=== PATIENT | male | born 1950 | race Caucasian/White ===

== ENCOUNTER 2018-04-11 19:30 | Outpatient (CLI) | payer MEDICARE, BC | END 2018-04-11 19:31 | disposition home or self-care (01) | LOC: SLEEPLAB 19:30 | PROVIDERS: ATTEND Family Medicine | DX: G47.33 Obstructive sleep apnea (adult) (pediatric) (principal); R53.83 Other fatigue; E66.9 Obesity, unspecified; F32.9 Major depressive disorder, single episode, unspecified; I10 Essential (primary) hypertension; I25.10 Atherosclerotic heart disease of native coronary artery without angina pectoris; E11.9 Type 2 diabetes mellitus without complications; G47.61 Periodic limb movement disorder; I49.3 Ventricular premature depolarization; Z68.38 Body mass index [BMI] 38.0-38.9, adult | CPT/HCPCS: 95810 ==

== ENCOUNTER 2018-04-18 19:30 | Outpatient (CLI) | payer MEDICARE, BC | END 2018-04-18 19:31 | disposition home or self-care (01) | LOC: SLEEPLAB 19:30 | PROVIDERS: ATTEND Family Medicine | DX: G47.33 Obstructive sleep apnea (adult) (pediatric) (principal); R53.83 Other fatigue; R40.0 Somnolence; R09.89 Other specified symptoms and signs involving the circulatory and respiratory systems; F32.9 Major depressive disorder, single episode, unspecified; E66.9 Obesity, unspecified; I10 Essential (primary) hypertension; I25.10 Atherosclerotic heart disease of native coronary artery without angina pectoris; E11.9 Type 2 diabetes mellitus without complications; Z68.38 Body mass index [BMI] 38.0-38.9, adult | CPT/HCPCS: 95811 ==

== ENCOUNTER 2023-02-25 10:19 | Observation (INO) | payer MEDICARE, BC ==
[2023-02-25] MEDS ORDERED: Nitroglycerin 2% Ointment 1 INCH/1 GM Packet ONE (10:40)
[2023-02-25 10:48] LABS: #Basophils 0.1 thou/uL (0.0-0.2); #Eosinphils 0.2 thou/uL (0.0-0.7); #Monocytes 0.7 thou/uL (0.11-0.59); #Neutrophils 3.6 thou/uL (1.40-6.50); %Basophils 0.7 % (0.0-1.0); %Eosinophils 3.4 % (0.0-10.0); %Lymphocytes 36.1 % (21.0-51.0); %Monocytes 9.8 % (0.0-10.0); %Neutrophils 49.7 % (42.0-75.0); Hemoglobin 16.4 g/dL (14.0-18.0); Mean Corpuscular HGB CONC 32.2 g/dL (32.0-36.0); Mean Corpuscular Hemoglobin 25.6 pg (27.0-31.0); Mean Corpuscular Volume 79.7 fl (78.0-98.0); Mean Platelet Volume 9.9 fL (7.4-10.4); Platelet Count 185 10x3/uL (130-400); RBC Distribution Width 14.6 % (11.5-14.5); White Blood Cell (WBC) Count 7.1 10x3/uL (4.8-10.8)
[2023-02-25 11:16] LABS: ALT (SGPT) 17 U/L (8-55); AST (SGOT) 21 U/L (5-34); Alkaline Phosphatase 59 U/L (40-110); Anion Gap 16 mmol/L (10-20); BUN (Urea Nitrogen) 15 mg/dL (8.4-25.7); Bilirubin, Total 0.4 mg/dL (0.2-1.2); Calc. Creatinine Clearance 0 mL/min (70-130); Calcium 9.1 mg/dL (7.8-10.44); Carbon Dioxide 21 mmol/L (23-31); Chloride 100 mmol/L (98-107); Estimated GFR 65; Globulin 3.9 g/dL (2.4-3.5); Glucose 372 mg/dL (83-110); Lipase 26 U/L (8-78); Potassium 4.4 mmol/L (3.5-5.1); Protein, Total 7.9 g/dL (5.8-8.1); Sodium 133 mmol/L (136-145)
[2023-02-25 11:18] LABS: Troponin I 0.053 ng/mL (< 0.028)
[2023-02-25 11:27] LABS: Bacteria/HPF None Seen HPF (None Seen); Bilirubin Negative (Negative); Blood, Urine Negative (Negative); CAUTI Indications for Culture Alt mental st,lethar; Clarity Clear (Clear); Glucose, Urine (Dipstick) Greater than 1000 mg/dL (Negative); Ketone, Urine Negative (Negative); Leukocyte Negative Leu/uL (Negative); Nitrite Negative (Negative); Protein, Urine (Dipstick) Negative (Neg-Trace); RBC/HPF 0-3 HPF (0-3); Specific Gravity, Urine 1.008 (1.002-1.036); Squamous Epithelial None Seen HPF (0-3); Urobilinogen Normal mg/dL (Less than 2); WBC/HPF None Seen HPF (0-3)
[2023-02-25 11:31] LABS: Urine Culture Reflex No No
[2023-02-25] MEDS ORDERED: Acetaminophen 500 MG TAB ONE (11:40)
[2023-02-25] MEDS ORDERED: Dextrose 50% Abboject 50 ML SYRINGE SLOW IVP PRN (13:27)
[2023-02-25] MEDS ORDERED: Senokot S 8.6-50 MG TAB PO PRN (13:27)
[2023-02-25] MEDS ORDERED: Ondansetron PF 4 MG/2 ML Vial IVP PRN ×2 (13:27→13:45)
[2023-02-25] MEDS ORDERED: Acetaminophen 650 MG Suppository PR PRN (13:27)
[2023-02-25] MEDS ORDERED: Dextrose 5% in Water 1,000 ML IV PRN (13:27)
[2023-02-25] MEDS ORDERED: Acetaminophen 325 MG TAB PO PRN ×2 (13:27→13:45)
[2023-02-25] MEDS ORDERED: Glucagon 1 MG/ML KIT IM PRN (13:27)
[2023-02-25] MEDS ORDERED: Ondansetron ODT 4 MG TAB PO PRN (13:27)
[2023-02-25] MEDS ORDERED: HumaLOG 300 UNITS/3 ML VIAL SC PRN (13:27)
[2023-02-25] MEDS ORDERED: Nitroglycerin 0.4 MG TAB (25 Tab Bottle) SL PRN (13:27)
[2023-02-25] MEDS ORDERED: Ondansetron ODT 4 MG TAB SL PRN (13:45)
[2023-02-25 14:03] LABS: Magnesium 1.7 mg/dL (1.6-2.6)
[2023-02-25] MEDS: tiZANidine HCl 4 MG TAB PO PRN ×2 (14:24→21:03)
[2023-02-25] MEDS: Nitroglycerin 2% Ointment 1 INCH/1 GM Packet TOP SCH ×2 (14:24→23:16)
[2023-02-25 14:31] VITALS: BMI 35.1
[2023-02-25 14:34] LABS: Troponin I 0.045 ng/mL (< 0.028)
[2023-02-25 18:17] LABS: Troponin I 0.037 ng/mL (< 0.028)
[2023-02-25] MEDS: HumaLOG 300 UNITS/3 ML VIAL SC PRN (18:24)
[2023-02-25] MEDS: Melatonin 3 MG TAB PO PRN (21:03)
[2023-02-25] MEDS: Amiodarone 200 MG TAB PO SCH (21:03)
[2023-02-25] MEDS: Famotidine 20 MG TAB PO SCH (21:03)
[2023-02-25] MEDS: HumuLIN 70/30 (300 UNITS/3 ML VIAL) SC SCH (21:03)
[2023-02-26] MEDS: Nitroglycerin 2% Ointment 1 INCH/1 GM Packet TOP SCH ×3 (05:45→21:33)
[2023-02-26 07:31] LABS: Magnesium 1.9 mg/dL (1.6-2.6)
[2023-02-26] MEDS: Famotidine 20 MG TAB PO SCH ×2 (08:09→21:27)
[2023-02-26] MEDS: tiZANidine HCl 4 MG TAB PO PRN ×2 (08:09→21:27)
[2023-02-26] MEDS: Amiodarone 200 MG TAB PO SCH ×2 (08:10→21:27)
[2023-02-26] MEDS: HumuLIN 70/30 (300 UNITS/3 ML VIAL) SC SCH ×2 (08:29→21:27)
[2023-02-26] MEDS: Isosorbide Mononitrate 30 MG ER.TAB PO SCH (08:30)
[2023-02-26] MEDS: HumaLOG 300 UNITS/3 ML VIAL SC PRN (13:38)
[2023-02-26] MEDS ORDERED: Amlodipine 5 mg/Benazepril 10 mg CAP PO SCH (18:30)
[2023-02-26] MEDS: Apixaban 5 MG TAB PO SCH (21:27)
[2023-02-27 06:00] LABS: Anion Gap 15 mmol/L (10-20); BUN (Urea Nitrogen) 15 mg/dL (8.4-25.7); Calc. Creatinine Clearance 91 mL/min (70-130); Calcium 9.3 mg/dL (7.8-10.44); Carbon Dioxide 24 mmol/L (23-31); Cardiac Risk 5.5 (Less than 4.5); Chloride 102 mmol/L (98-107); Cholesterol 225 mg/dl (< 200 Desired); Estimated GFR 65; Glucose 196 mg/dL (83-110); HDL Cholesterol 41 mg/dL (>60 Neg Risk); LDL Cholesterol, Calculated 135 mg/dL; Sodium 137 mmol/L (136-145); Triglycerides 247 mg/dL (Less than 150)
[2023-02-27] MEDS: Nitroglycerin 2% Ointment 1 INCH/1 GM Packet TOP SCH ×3 (06:01→21:38)
[2023-02-27] MEDS: HumaLOG 300 UNITS/3 ML VIAL SC PRN ×3 (09:18→17:50)
[2023-02-27] MEDS: HumuLIN 70/30 (300 UNITS/3 ML VIAL) SC SCH ×2 (09:19→21:38)
[2023-02-27] MEDS: Amlodipine 5 mg/Benazepril 10 mg CAP PO SCH (09:23)
[2023-02-27] MEDS: Isosorbide Mononitrate 30 MG ER.TAB PO SCH (09:23)
[2023-02-27] MEDS: Clopidogrel Bisulfate 75 MG TAB PO SCH (09:23)
[2023-02-27] MEDS: Apixaban 5 MG TAB PO SCH ×2 (09:24→21:37)
[2023-02-27] MEDS: Famotidine 20 MG TAB PO SCH ×2 (09:24→21:37)
[2023-02-27] MEDS: tiZANidine HCl 4 MG TAB PO PRN ×2 (09:24→21:37)
[2023-02-27] MEDS: Amiodarone 200 MG TAB PO SCH ×2 (09:24→21:37)
[2023-02-27] MEDS: Melatonin 3 MG TAB PO PRN (21:37)
[2023-02-28] MEDS: Nitroglycerin 2% Ointment 1 INCH/1 GM Packet TOP SCH ×3 (04:45→21:25)
[2023-02-28 08:18] LABS: Anion Gap 12 mmol/L (10-20); BUN (Urea Nitrogen) 19 mg/dL (8.4-25.7); Calc. Creatinine Clearance 98 mL/min (70-130); Calcium 9.1 mg/dL (7.8-10.44); Carbon Dioxide 24 mmol/L (23-31); Chloride 103 mmol/L (98-107); Estimated GFR 70; Glucose 165 mg/dL (83-110); Potassium 4.3 mmol/L (3.5-5.1); Sodium 135 mmol/L (136-145)
[2023-02-28] MEDS: Amlodipine 5 mg/Benazepril 10 mg CAP PO SCH (10:05)
[2023-02-28] MEDS: Amiodarone 200 MG TAB PO SCH ×2 (10:06→21:25)
[2023-02-28] MEDS: Clopidogrel Bisulfate 75 MG TAB PO SCH (10:06)
[2023-02-28] MEDS: Apixaban 5 MG TAB PO SCH ×2 (10:06→21:25)
[2023-02-28] MEDS: Isosorbide Mononitrate 30 MG ER.TAB PO SCH (10:06)
[2023-02-28] MEDS: HumuLIN 70/30 (300 UNITS/3 ML VIAL) SC SCH ×2 (10:08→21:24)
[2023-02-28] MEDS: Famotidine 20 MG TAB PO SCH ×2 (10:11→21:25)
[2023-02-28] MEDS ORDERED: Regadenoson 0.4 MG/5 ML SYRINGE ONE (12:18)
[2023-02-28] MEDS: HumaLOG 300 UNITS/3 ML VIAL SC PRN (19:31)
[2023-02-28] MEDS: Melatonin 3 MG TAB PO PRN (21:25)
[2023-02-28] MEDS: tiZANidine HCl 4 MG TAB PO PRN (21:25)
[2023-02-28 23:59] LABS: Campy jejuni + coli by PCR Negative (Negative); STEC Shiga Toxin 1+2 Negative (Negative); Salmonella spp. by PCR Negative (Negative); Shigella spp + EIEC by PCR Negative (Negative)
[2023-03-01] MEDS: Nitroglycerin 2% Ointment 1 INCH/1 GM Packet TOP SCH ×2 (04:45→13:34)
[2023-03-01] MEDS: Famotidine 20 MG TAB PO SCH (09:34)
[2023-03-01] MEDS: Isosorbide Mononitrate 30 MG ER.TAB PO SCH (09:34)
[2023-03-01] MEDS: Apixaban 5 MG TAB PO SCH (09:34)
[2023-03-01] MEDS: Amiodarone 200 MG TAB PO SCH (09:34)
[2023-03-01] MEDS: Clopidogrel Bisulfate 75 MG TAB PO SCH (09:34)
[2023-03-01] MEDS: HumuLIN 70/30 (300 UNITS/3 ML VIAL) SC SCH (09:35)
[2023-03-01] MEDS: Amlodipine 5 mg/Benazepril 10 mg CAP PO SCH (09:37)
[2023-03-01] MEDS: HumaLOG 300 UNITS/3 ML VIAL SC PRN (12:10)
[2023-03-01 15:35] VITALS: BP 129/77; TEMP 97.4
[2023-03-03 14:37] LABS: Adenovirus F 40-41 Not Detected (Not Detected); Astrovirus Not Detected (Not Detected); C. difficile toxin A+B Not Detected (Not Detected); Campylobacter by PCR Not Detected (Not Detected); Cryptosporidium Not Detected (Not Detected); Cyclospora cayetanensis Not Detected (Not Detected); Entamoeba histolytica Not Detected (Not Detected); Enteroaggregative E. coli Not Detected (Not Detected); Enteropathogenic E. coli Not Detected (Not Detected); Enterotoxigenic E. coli Not Detected (Not Detected); Giardia lamblia Not Detected (Not Detected); Norovirus GI-GII Not Detected (Not Detected); Plesiomonas shigelloides Not Detected (Not Detected); Rotavirus A Not Detected (Not Detected); Salmonella Not Detected (Not Detected); Sapovirus Not Detected (Not Detected); Shiga-toxin-producing E coli Not Detected (Not Detected); Shigella/Enteroinvasive E coli Not Detected (Not Detected); Vibrio Not Detected (Not Detected); Vibrio cholerae Not Detected (Not Detected); Yersinia enterocolitica Not Detected (Not Detected)
== END 2023-03-01 17:34 | disposition home or self-care (01) ==
LOC: ERS 10:19 → 2SW 11:43
PROVIDERS: ADMIT Hospitalist; ATTEND Hospitalist
PROC: B246ZZ4 Ultrasonography of Right and Left Heart, Transesophageal (ICD-10-PCS; principal; 2023-03-01)
DX: I25.118 Atherosclerotic heart disease of native coronary artery with other forms of angina pectoris (principal); I21.4 Non-ST elevation (NSTEMI) myocardial infarction; I48.20 Chronic atrial fibrillation, unspecified; I25.5 Ischemic cardiomyopathy; I16.0 Hypertensive urgency; I10 Essential (primary) hypertension; E78.00 Pure hypercholesterolemia, unspecified; E11.9 Type 2 diabetes mellitus without complications; J42 Unspecified chronic bronchitis; F41.9 Anxiety disorder, unspecified; F32.A Depression, unspecified; G89.29 Other chronic pain; M54.50 Low back pain, unspecified; G47.33 Obstructive sleep apnea (adult) (pediatric); Z88.8 Allergy status to other drugs, medicaments and biological substances; Z90.49 Acquired absence of other specified parts of digestive tract; Z79.4 Long term (current) use of insulin; Z79.84 Long term (current) use of oral hypoglycemic drugs; Z79.82 Long term (current) use of aspirin; Z79.01 Long term (current) use of anticoagulants; Z79.899 Other long term (current) drug therapy
CPT/HCPCS: 71045; 78452; 80048 ×2; 80053; 80061; 81001; 82962 ×5; 83630; 83690; 83735 ×2; 83880; 84443; 84484 ×2; 85025; 87324; 87449; 87505; 87507; 93005 ×3; 93017; 93306; 99285; A9502; G0378 ×6; J2785; 36415; 36416; 93010; J1815

== ENCOUNTER 2023-03-26 08:50 | Day surgery (SDC) | payer MEDICARE, BC ==
[2023-03-23 13:03] VITALS: BMI 33.5
[2023-03-26] MEDS ORDERED: PROPOFOL 200 MG/20 ML VIAL ONE (12:00)
== END 2023-03-26 14:06 | disposition home or self-care (01) ==
LOC: MRI 08:50
PROVIDERS: ATTEND Neurological Surgery
DX: M54.16 Radiculopathy, lumbar region (principal); M47.12 Other spondylosis with myelopathy, cervical region; I10 Essential (primary) hypertension; F32.A Depression, unspecified; E11.9 Type 2 diabetes mellitus without complications; I25.10 Atherosclerotic heart disease of native coronary artery without angina pectoris; I25.2 Old myocardial infarction; F41.9 Anxiety disorder, unspecified; G47.33 Obstructive sleep apnea (adult) (pediatric); Z88.8 Allergy status to other drugs, medicaments and biological substances; Z98.890 Other specified postprocedural states; Z79.01 Long term (current) use of anticoagulants; Z79.4 Long term (current) use of insulin; Z79.899 Other long term (current) drug therapy
CPT/HCPCS: 36416; 72040; 72141; 72148; J2704

== ENCOUNTER 2024-01-17 05:10 | Inpatient (IN) | payer MEDICARE, BC ==
[2024-01-17] MEDS ORDERED: NOREPINEPHRINE 8 MG/250 ML-D5W 250 ML ONE (05:23)
[2024-01-17 05:28] LABS: Actual Bicarbonate (HCO3v) 35.9 mEq/L (22-28); Analyzer IN Cardio ER; Base Excess 8.2 mEq/L (-2.0 to +3.0); Calcium, Ionized (venous) 1.17 mmol/L (1.16-1.32); Chloride (VBG) 96 mmol/L (98-106); Hematocrit-VBG 29 % (42.0-52.0); Hemoglobin (Hb) 9.9 g/dL (12.6-17.4); Potassium (VBG) 4.39 mmol/L (3.70-5.30); Sodium 142 mmol/L (133-146); pH (venous) 7.326 (7.32-7.43)
[2024-01-17] MEDS ORDERED: LevoFLOXacin 750 mg/D5W 150 ml Premix Bag ONE (05:30)
[2024-01-17] MEDS ORDERED: Cefepime 2 GM VIAL ONE (05:31)
[2024-01-17] MEDS ORDERED: Sodium Chloride 0.9% 100 ML ONE (05:31)
[2024-01-17 05:44] LABS: Bacteria/HPF None Seen HPF (None Seen); Bilirubin Negative (Negative); Blood, Urine Negative (Negative); CAUTI Indications for Culture Alt mental st,lethar; Clarity Clear (Clear); Glucose, Urine (Dipstick) Greater than 1000 mg/dL (Negative); Ketone, Urine Negative (Negative); Leukocyte Negative Leu/uL (Negative); Nitrite Negative (Negative); Protein, Urine (Dipstick) 20 mg/dL (Neg-Trace); RBC/HPF 0-3 HPF (0-3); Specific Gravity, Urine 1.021 (1.002-1.036); Squamous Epithelial None Seen HPF (0-3); Urobilinogen Normal mg/dL (Less than 2); WBC/HPF 0-3 HPF (0-3)
[2024-01-17 05:45] LABS: Urine Culture Reflex No No
[2024-01-17 05:50] LABS: #Basophils 0.03 10x3/uL (0.0-0.2); %Basophils 0.2 % (0.0-1.0); %Eosinophils 0.3 % (0.0-10.0); %Lymphocytes 19.9 % (21.0-51.0); %Monocytes 5.8 % (0.0-10.0); %Neutrophils 73.4 % (42.0-75.0); Hematocrit 34.5 % (42.0-52.0); Hemoglobin 9.6 g/dL (14.0-18.0); Mean Corpuscular HGB CONC 27.8 g/dL (32.0-36.0); Mean Corpuscular Hemoglobin 22.4 pg (27.0-31.0); Mean Corpuscular Volume 80.4 fL (78.0-98.0); Mean Platelet Volume 9.8 fL (7.4-10.4); Platelet Count 381 10x3/uL (130-400); RBC Distribution Width 21.4 % (11.5-14.5); Red Blood Cell (RBC) Count 4.29 mill/uL (4.70-6.10)
[2024-01-17 06:08] LABS: ALT (SGPT) 17 U/L (8-55); AST (SGOT) 15 U/L (5-34); Albumin 2.3 g/dL (3.4-4.8); Alkaline Phosphatase 88 U/L (40-110); Anion Gap 14 mmol/L (10-20); BUN (Urea Nitrogen) 53 mg/dL (8.4-25.7); Bilirubin, Total 0.3 mg/dL (0.2-1.2); CK (CPK) 32 U/L (30-200); Calc. Creatinine Clearance 0 mL/min (70-130); Calcium 9.3 mg/dL (7.8-10.44); Carbon Dioxide 39 mmol/L (23-31); Chloride 95 mmol/L (98-107); Estimated GFR 91; Globulin 5.6 g/dL (2.4-3.5); Glucose 289 mg/dL (83-110); Potassium 4.4 mmol/L (3.5-5.1); Protein, Total 7.9 g/dL (5.8-8.1); Sodium 144 mmol/L (136-145)
[2024-01-17 06:21] LABS: Anisocytosis SLIGHT = 6-15 cells HPF (0-5); Microcytosis SLIGHT = 6-15 cells HPF (0-5); Platelet Adequacy Comment Platelets Normal; Polychromasia SLIGHT = 2-3 cells HPF (0-2); Stomatocytes SLIGHT = 2-5 cells HPF (0-1)
[2024-01-17 06:50] LABS: Troponin I Less than 0.010 ng/mL (< 0.028)
[2024-01-17] MEDS ORDERED: Dextrose 50% Abboject 50 ML SYRINGE SLOW IVP PRN (08:00)
[2024-01-17] MEDS ORDERED: Glucagon 1 MG/ML KIT IM PRN (08:00)
[2024-01-17] MEDS ORDERED: Dextrose 5% in Water 1,000 ML IV PRN (08:00)
[2024-01-17] MEDS ORDERED: Insulin Lispro 100 UNIT/ML 10 ML VIAL SC PRN (08:00)
[2024-01-17] MEDS ORDERED: Cefepime 1 MG in Syringe 0 ML IVPB SCH (09:00)
[2024-01-17] MEDS: Vancomycin (BATCH) 2 GM in Premix 1 BAG IVPB SCH (09:08)
[2024-01-17 09:27] LABS: Lactic Acid 2.16 mmol/L (0.5-2.2)
[2024-01-17] MEDS: Scopolamine 1 mg/72 hour Patch TD SCH (10:24)
[2024-01-17] MEDS: Aspirin Chewable 81 MG TAB PER TUBE SCH (10:24)
[2024-01-17] MEDS: Apixaban 2.5 MG TAB PO SCH (10:24)
[2024-01-17] MEDS: Lansoprazole 30 MG/10 ML UDCUP PER TUBE SCH (10:25)
[2024-01-17] MEDS: Insulin Glargine 30 UNITS/0.3 ML VIAL SC SCH (10:25)
[2024-01-17] MEDS: Sodium Chloride 0.9% 1,000 ML IV SCH (10:28)
[2024-01-17 10:33] LABS: Actual Bicarbonate (HCO3a) 30.7 mEq/L (22-28); Base Excess (BEa) 9.1 mEq/L (-2.0 to +3.0); CO2 Tension 31.3 mmHg (35.0-45.0); Carboxyhemoglobin (COHb) 1.1 gm% (0.0-3.0); Hematocrit-ABG 29 % (42.0-52.0); Hemoglobin (Hb) 9.8 g/dL (14.0-18.0); O2 Tension (PaO2), arterial 68.2 mmHg (> 70.0)
[2024-01-17 10:59] LABS: ALV-art Gradient 177.875 mmHg (0-20); Puncture Site Right Radial artery
[2024-01-17] MEDS: FLU (Fluad Triv) TS24-25 (65UP)/MF59C/PF 45 MCG/0.5 ML Syringe IM ONE (12:40)
[2024-01-17] MEDS: Cefepime 2 GM in Sodium Chloride 0.9% 100 ML IVPB SCH (14:25)
[2024-01-17] MEDS: Ipratropium/Albuterol 3 ML NEB NEB PRN (19:22)
[2024-01-17] MEDS: Budesonide 0.5 MG/2 ML NEB INH SCH (19:22)
[2024-01-17] MEDS: QUEtiapine 25 MG TAB PO SCH (21:18)
[2024-01-17] MEDS: Atorvastatin Calcium 40 MG TAB PER TUBE SCH (21:18)
[2024-01-17] MEDS: Vancomycin (BATCH) 1.25 GM in Premix 1 BAG IVPB SCH (21:43)
[2024-01-18 04:59] LABS: #Basophils 0.04 10x3/uL (0.0-0.2); #Eosinophils Less than 0.03 10x3/uL (0.0-0.7); %Basophils 0.3 % (0.0-1.0); %Eosinophils 0.1 % (0.0-10.0); %Monocytes 6.4 % (0.0-10.0); %Neutrophils 58.9 % (42.0-75.0); Hematocrit 26.2 % (42.0-52.0); Hemoglobin 7.3 g/dL (14.0-18.0); Mean Corpuscular HGB CONC 27.9 g/dL (32.0-36.0); Mean Corpuscular Hemoglobin 22.2 pg (27.0-31.0); Mean Corpuscular Volume 79.6 fL (78.0-98.0); Mean Platelet Volume 9.7 fL (7.4-10.4); Platelet Count 313 10x3/uL (130-400); RBC Distribution Width 21.2 % (11.5-14.5); Red Blood Cell (RBC) Count 3.29 mill/uL (4.70-6.10)
[2024-01-18 05:04] LABS: Vancomycin, Random 11.2 ug/mL (See Comment)
[2024-01-18 05:08] LABS: ALT (SGPT) 14 U/L (8-55); AST (SGOT) 27 U/L (5-34); Albumin 1.7 g/dL (3.4-4.8); Alkaline Phosphatase 60 U/L (40-110); Anion Gap 12 mmol/L (10-20); BUN (Urea Nitrogen) 38 mg/dL (8.4-25.7); Bilirubin, Total 0.3 mg/dL (0.2-1.2); Calc. Creatinine Clearance 128 mL/min (70-130); Calcium 7.8 mg/dL (7.8-10.44); Carbon Dioxide 28 mmol/L (23-31); Chloride 105 mmol/L (98-107); Estimated GFR 99; Globulin 4.2 g/dL (2.4-3.5); Glucose 108 mg/dL (83-110); Magnesium 2.6 mg/dL (1.6-2.6); Potassium 3.4 mmol/L (3.5-5.1); Protein, Total 5.9 g/dL (5.8-8.1); Sodium 142 mmol/L (136-145)
[2024-01-18] MEDS: Ondansetron PF 4 MG/2 ML Vial IVP PRN (06:00)
[2024-01-18] MEDS: Vancomycin (BATCH) 1.25 GM in Premix 1 BAG IVPB SCH (07:29)
[2024-01-18] MEDS: Enoxaparin 40 MG (0.4 mL) SYRINGE SC SCH (10:20)
[2024-01-18 12:23] LABS: Hematocrit 24.3 % (42.0-52.0); Hemoglobin 6.9 g/dL (14.0-18.0)
[2024-01-18] MEDS: Potassium Chloride 20 MEQ in Premix 1 BAG IVPB SCH (14:07)
[2024-01-18] MEDS: NOREPINEPHRINE 8 MG/250 ML-D5W 250 ML IVPB SCH (14:21)
[2024-01-18] MEDS ORDERED: GenTeal Tears Severe Dry Eye GEL 10 GM EA EYE SCH (21:00)
[2024-01-18] MEDS: Vancomycin (BATCH) 1.5 GM in Premix 1 BAG IVPB SCH (22:32)
[2024-01-19] MEDS: Melatonin 3 MG TAB PO SCH (03:12)
[2024-01-19 05:33] LABS: #Basophils 0.03 10x3/uL (0.0-0.2); %Basophils 0.3 % (0.0-1.0); %Eosinophils 1.3 % (0.0-10.0); %Lymphocytes 35.1 % (21.0-51.0); %Monocytes 7.6 % (0.0-10.0); %Neutrophils 55.5 % (42.0-75.0); Hematocrit 28.9 % (42.0-52.0); Hemoglobin 8.5 g/dL (14.0-18.0); Mean Corpuscular HGB CONC 29.4 g/dL (32.0-36.0); Mean Corpuscular Hemoglobin 24.1 pg (27.0-31.0); Mean Corpuscular Volume 82.1 fL (78.0-98.0); Mean Platelet Volume 9.4 fL (7.4-10.4); Platelet Count 224 10x3/uL (130-400); RBC Distribution Width 19.9 % (11.5-14.5); Red Blood Cell (RBC) Count 3.52 mill/uL (4.70-6.10)
[2024-01-19 05:47] LABS: Anion Gap 12 mmol/L (10-20); BUN (Urea Nitrogen) 30 mg/dL (8.4-25.7); Calc. Creatinine Clearance 160 mL/min (70-130); Calcium 7.8 mg/dL (7.8-10.44); Carbon Dioxide 24 mmol/L (23-31); Chloride 110 mmol/L (98-107); Estimated GFR 105; Glucose 84 mg/dL (83-110); Potassium 3.7 mmol/L (3.5-5.1); Sodium 142 mmol/L (136-145)
[2024-01-19 05:48] LABS: Vancomycin, Random 32.9 ug/mL (See Comment)
[2024-01-19] MEDS: Acetaminophen 325 MG TAB PER TUBE PRN (12:30)
[2024-01-19] MEDS: Morphine 2 MG/ML VIAL SLOW IVP PRN (12:42)
[2024-01-19] MEDS: Enoxaparin 40 MG (0.4 mL) SYRINGE SC SCH (20:04)
[2024-01-19] MEDS: Melatonin 3 MG TAB PO PRN (20:04)
[2024-01-19] MEDS: Vancomycin 1 GM in Premix 1 BAG IVPB SCH (22:59)
[2024-01-20 04:33] LABS: #Basophils Less than 0.03 10x3/uL (0.0-0.2); %Basophils 0.3 % (0.0-1.0); %Eosinophils 2.3 % (0.0-10.0); %Lymphocytes 32.7 % (21.0-51.0); %Monocytes 7.5 % (0.0-10.0); %Neutrophils 56.9 % (42.0-75.0); Hemoglobin 8.9 g/dL (14.0-18.0); Mean Corpuscular HGB CONC 29.7 g/dL (32.0-36.0); Mean Corpuscular Hemoglobin 24.5 pg (27.0-31.0); Mean Corpuscular Volume 82.6 fL (78.0-98.0); Mean Platelet Volume 9.3 fL (7.4-10.4); Platelet Count 204 10x3/uL (130-400); RBC Distribution Width 20.1 % (11.5-14.5); Red Blood Cell (RBC) Count 3.63 mill/uL (4.70-6.10)
[2024-01-20 04:54] LABS: Vancomycin, Random 37.1 ug/mL (See Comment)
[2024-01-20 04:55] LABS: Anion Gap 13 mmol/L (10-20); BUN (Urea Nitrogen) 27 mg/dL (8.4-25.7); Calc. Creatinine Clearance 134 mL/min (70-130); Calcium 7.9 mg/dL (7.8-10.44); Carbon Dioxide 22 mmol/L (23-31); Chloride 108 mmol/L (98-107); Estimated GFR 99; Glucose 107 mg/dL (83-110); Potassium 3.4 mmol/L (3.5-5.1); Sodium 140 mmol/L (136-145)
[2024-01-20] MEDS: VANCOMYCIN 1.25 GM/250 ML BAG 1.25 GM in Premix 1 BAG IVPB SCH (20:13)
[2024-01-21 04:11] LABS: #Basophils Less than 0.03 10x3/uL (0.0-0.2); %Basophils 0.2 % (0.0-1.0); %Lymphocytes 31.9 % (21.0-51.0); %Monocytes 7.2 % (0.0-10.0); %Neutrophils 58.4 % (42.0-75.0); Hematocrit 29.6 % (42.0-52.0); Hemoglobin 8.8 g/dL (14.0-18.0); Mean Corpuscular HGB CONC 29.7 g/dL (32.0-36.0); Mean Corpuscular Hemoglobin 24.3 pg (27.0-31.0); Mean Corpuscular Volume 81.8 fL (78.0-98.0); Mean Platelet Volume 9.4 fL (7.4-10.4); Platelet Count 199 10x3/uL (130-400); RBC Distribution Width 19.9 % (11.5-14.5); Red Blood Cell (RBC) Count 3.62 mill/uL (4.70-6.10)
[2024-01-21 04:26] LABS: Anion Gap 11 mmol/L (10-20); BUN (Urea Nitrogen) 25 mg/dL (8.4-25.7); Calc. Creatinine Clearance 153 mL/min (70-130); Carbon Dioxide 22 mmol/L (23-31); Chloride 107 mmol/L (98-107); Estimated GFR 103; Glucose 130 mg/dL (83-110); Potassium 3.3 mmol/L (3.5-5.1); Sodium 137 mmol/L (136-145); Vancomycin, Random 33.2 ug/mL (See Comment)
[2024-01-21] MEDS ORDERED: Electrolyte Replacement Protocol FS PRN (08:45)
[2024-01-21] MEDS: Potassium Bicarbonate/Cit Ac 20 MEQ TAB PER TUBE SCH (09:24)
[2024-01-21 14:35] LABS: Potassium 3.6 mmol/L (3.5-5.1)
[2024-01-21] MEDS: Electrolyte Replacement Protocol 1 EACH FS ONE (16:44)
[2024-01-22 05:58] LABS: #Basophils Less than 0.03 10x3/uL (0.0-0.2); %Basophils 0.2 % (0.0-1.0); %Eosinophils 1.8 % (0.0-10.0); %Lymphocytes 31.3 % (21.0-51.0); %Monocytes 8.4 % (0.0-10.0); Hematocrit 32.8 % (42.0-52.0); Hemoglobin 9.7 g/dL (14.0-18.0); Mean Corpuscular HGB CONC 29.6 g/dL (32.0-36.0); Mean Corpuscular Hemoglobin 24.6 pg (27.0-31.0); Mean Corpuscular Volume 83.2 fL (78.0-98.0); Mean Platelet Volume 9.7 fL (7.4-10.4); Platelet Count 201 10x3/uL (130-400); RBC Distribution Width 19.9 % (11.5-14.5); Red Blood Cell (RBC) Count 3.94 mill/uL (4.70-6.10)
[2024-01-22 06:26] LABS: Anion Gap 11 mmol/L (10-20); BUN (Urea Nitrogen) 20 mg/dL (8.4-25.7); Calc. Creatinine Clearance 151 mL/min (70-130); Calcium 8.3 mg/dL (7.8-10.44); Carbon Dioxide 20 mmol/L (23-31); Chloride 109 mmol/L (98-107); Estimated GFR 103; Glucose 119 mg/dL (83-110); Potassium 3.3 mmol/L (3.5-5.1); Sodium 137 mmol/L (136-145)
[2024-01-22] MEDS: Ketorolac Tromethamine 30 MG (1 mL) VIAL IVP SCH (13:41)
[2024-01-22] MEDS: HYDROcodone/Acetaminophen 10/325 mg Tablet PO PRN (20:32)
[2024-01-23 05:45] LABS: #Basophils Less than 0.03 10x3/uL (0.0-0.2); %Basophils 0.2 % (0.0-1.0); %Eosinophils 3.1 % (0.0-10.0); %Lymphocytes 33.3 % (21.0-51.0); %Neutrophils 55.2 % (42.0-75.0); Hematocrit 30.5 % (42.0-52.0); Mean Corpuscular HGB CONC 29.5 g/dL (32.0-36.0); Mean Corpuscular Hemoglobin 24.4 pg (27.0-31.0); Mean Corpuscular Volume 82.7 fL (78.0-98.0); Mean Platelet Volume 10.1 fL (7.4-10.4); Platelet Count 200 10x3/uL (130-400); RBC Distribution Width 19.7 % (11.5-14.5); Red Blood Cell (RBC) Count 3.69 mill/uL (4.70-6.10)
[2024-01-23] MEDS: hydrOXYzine 25 MG TAB PO SCH (05:52)
[2024-01-23 06:05] LABS: Anion Gap 10 mmol/L (10-20); BUN (Urea Nitrogen) 24 mg/dL (8.4-25.7); Calc. Creatinine Clearance 152 mL/min (70-130); Carbon Dioxide 22 mmol/L (23-31); Chloride 108 mmol/L (98-107); Estimated GFR 102; Glucose 143 mg/dL (83-110); Potassium 3.5 mmol/L (3.5-5.1); Sodium 136 mmol/L (136-145)
[2024-01-24] MEDS: Morphine 2 MG/ML VIAL SLOW IVP PRN (08:34)
[2024-01-24] MEDS: Insulin Lispro 100 UNIT/ML 10 ML VIAL SC PRN (18:18)
[2024-01-25 04:23] LABS: #Basophils 0.03 10x3/uL (0.0-0.2); %Basophils 0.4 % (0.0-1.0); %Eosinophils 2.2 % (0.0-10.0); %Lymphocytes 35.8 % (21.0-51.0); %Monocytes 8.2 % (0.0-10.0); Hematocrit 28.6 % (42.0-52.0); Hemoglobin 8.3 g/dL (14.0-18.0); Mean Corpuscular Hemoglobin 24.3 pg (27.0-31.0); Mean Corpuscular Volume 83.9 fL (78.0-98.0); Mean Platelet Volume 9.8 fL (7.4-10.4); Platelet Count 191 10x3/uL (130-400); Red Blood Cell (RBC) Count 3.41 mill/uL (4.70-6.10)
[2024-01-25 04:45] LABS: Anion Gap 10 mmol/L (10-20); BUN (Urea Nitrogen) 21 mg/dL (8.4-25.7); Calc. Creatinine Clearance 185 mL/min (70-130); Carbon Dioxide 24 mmol/L (23-31); Chloride 105 mmol/L (98-107); Estimated GFR 106; Glucose 152 mg/dL (83-110); Potassium 3.7 mmol/L (3.5-5.1); Sodium 135 mmol/L (136-145)
[2024-01-25 05:17] VITALS: BMI 32.6
[2024-01-25] MEDS: Acetaminophen 650 MG/20.3 ML UDCUP PER TUBE PRN (14:07)
[2024-01-26] MEDS: Senokot S 8.6-50 MG TAB PO PRN (02:18)
[2024-01-27 04:15] LABS: #Basophils 0.03 10x3/uL (0.0-0.2); %Basophils 0.4 % (0.0-1.0); %Eosinophils 3.4 % (0.0-10.0); %Lymphocytes 40.1 % (21.0-51.0); %Monocytes 8.8 % (0.0-10.0); Hematocrit 29.9 % (42.0-52.0); Hemoglobin 8.8 g/dL (14.0-18.0); Mean Corpuscular HGB CONC 29.4 g/dL (32.0-36.0); Mean Corpuscular Hemoglobin 23.7 pg (27.0-31.0); Mean Corpuscular Volume 80.4 fL (78.0-98.0); Mean Platelet Volume 9.7 fL (7.4-10.4); Platelet Count 185 10x3/uL (130-400); RBC Distribution Width 18.7 % (11.5-14.5); Red Blood Cell (RBC) Count 3.72 mill/uL (4.70-6.10)
[2024-01-27 04:38] LABS: Anion Gap 10 mmol/L (10-20); BUN (Urea Nitrogen) 19 mg/dL (8.4-25.7); Calc. Creatinine Clearance 161 mL/min (70-130); Calcium 8.2 mg/dL (7.8-10.44); Carbon Dioxide 29 mmol/L (23-31); Chloride 105 mmol/L (98-107); Estimated GFR 102; Glucose 148 mg/dL (83-110); Potassium 4.2 mmol/L (3.5-5.1); Sodium 140 mmol/L (136-145)
[2024-01-28] MEDS: Lidocaine 4% PF 5 ML AMP NEB SCH (04:53)
[2024-01-28 15:11] VITALS: BMI 32.6
[2024-01-29 10:17] VITALS: BP 115/61; TEMP 98.3
== END 2024-01-29 11:20 | disposition short-term general hospital (02) | DRG 871 ==
LOC: SUATTDRO 05:10 → ERS 05:10 → CCU 06:02 → T4-B 01-21 15:14
PROVIDERS: ADMIT Internal Medicine; ATTEND Family Medicine
PROC: 06HM33Z Insertion of Infusion Device into Right Femoral Vein, Percutaneous Approach (ICD-10-PCS; principal; 2024-01-17)
PROC: 4A033R1 Measurement of Arterial Saturation, Peripheral, Percutaneous Approach (ICD-10-PCS; 2024-01-17)
PROC: 3E033XZ Introduction of Vasopressor into Peripheral Vein, Percutaneous Approach (ICD-10-PCS; 2024-01-17)
PROC: 3E02340 Introduction of Influenza Vaccine into Muscle, Percutaneous Approach (ICD-10-PCS; 2024-01-17)
PROC: 30233N1 Transfusion of Nonautologous Red Blood Cells into Peripheral Vein, Percutaneous Approach (ICD-10-PCS; 2024-01-18)
DX: A41.52 Sepsis due to Pseudomonas (principal); J96.21 Acute and chronic respiratory failure with hypoxia; L89.154 Pressure ulcer of sacral region, stage 4; R65.21 Severe sepsis with septic shock; I50.22 Chronic systolic (congestive) heart failure; D62 Acute posthemorrhagic anemia; L76.22 Postprocedural hemorrhage of skin and subcutaneous tissue following other procedure; A41.81 Sepsis due to Enterococcus; E11.9 Type 2 diabetes mellitus without complications; I48.0 Paroxysmal atrial fibrillation; I25.10 Atherosclerotic heart disease of native coronary artery without angina pectoris; Z23 Encounter for immunization; G47.33 Obstructive sleep apnea (adult) (pediatric); E78.5 Hyperlipidemia, unspecified; Y83.8 Other surgical procedures as the cause of abnormal reaction of the patient, or of later complication, without mention of misadventure at the time of the procedure; R53.81 Other malaise; I11.0 Hypertensive heart disease with heart failure; I25.5 Ischemic cardiomyopathy; Z79.01 Long term (current) use of anticoagulants; Z79.899 Other long term (current) drug therapy; Z95.5 Presence of coronary angioplasty implant and graft; Z88.8 Allergy status to other drugs, medicaments and biological substances; Z86.74 Personal history of sudden cardiac arrest; Z79.82 Long term (current) use of aspirin; Z95.1 Presence of aortocoronary bypass graft; Z93.0 Tracheostomy status
CPT/HCPCS: 36415; 36416; 36430; 36556; 36600; 71045; 80048; 80053; 80202; 81001; 82550; 82805; 83605; 83735; 83880; 84100; 84145; 84484; 85025; 86850; 86900; 86901; 87040; 87070; 87077; 87186; 87205; 87428; 93005; 94002; 94003; 94640; 94760; 96365; 96366; 96367; 96368; 97139; J0692; J1650; J1815; J1885; J1956; J2272; J2405; J3370; J3370-JW; J3480; J7030; J7620; J7626; P9016

== ENCOUNTER 2024-10-16 20:25 | Inpatient (IN) | payer MEDICARE, BC ==
[2024-10-16] MEDS ORDERED: Acetaminophen 500 MG TAB ONE (22:31)
[2024-10-16 22:36] LABS: #Basophils Less than 0.03 10x3/uL (0.0-0.2); #Eosinophils Less than 0.03 10x3/uL (0.0-0.7); #Monocytes 0.96 10x3/uL (0.11-0.59); #Neutrophils 12.98 10x3/uL (1.40-6.50); %Basophils 0.1 % (0.0-1.0); %Eosinophils 0.0 % (0.0-10.0); %Lymphocytes 18.9 % (21.0-51.0); %Monocytes 5.5 % (0.0-10.0); %Neutrophils 74.8 % (42.0-75.0); Hematocrit 36.1 % (42.0-52.0); Hemoglobin 11.1 g/dL (14.0-18.0); Mean Corpuscular Hemoglobin 23.0 pg (27.0-31.0); Mean Corpuscular Volume 74.9 fL (78.0-98.0); Platelet Count 201 10x3/uL (130-400); Red Blood Cell (RBC) Count 4.82 mill/uL (4.70-6.10); White Blood Cell (WBC) Count 17.36 10x3/uL (4.8-10.8)
[2024-10-16 22:54] LABS: Platelet Adequacy Comment Platelets Normal; Polychromasia SLIGHT = 2-3 cells HPF (0-2)
[2024-10-16 23:11] LABS: Actual Bicarbonate (HCO3v) 22.5 mEq/L (22-28); Base Excess -2.2 mEq/L (-2.0 to +3.0); Calcium, Ionized (venous) 1.15 mmol/L (1.16-1.32); Chloride (VBG) 101 mmol/L (98-106); Hematocrit-VBG 33 % (42.0-52.0); Hemoglobin (Hb) 11.3 g/dL (12.6-17.4); Potassium (VBG) 4.79 mmol/L (3.70-5.30); Sodium 134 mmol/L (133-146)
[2024-10-16 23:25] LABS: ALT (SGPT) 11 U/L (Less than 45); AST (SGOT) 21 U/L (11-34); Albumin 3.2 g/dL (3.1-4.5); Alkaline Phosphatase 72 U/L (40-110); Anion Gap 19 mmol/L (10-20); BUN (Urea Nitrogen) 17 mg/dL (8.4-25.7); Bilirubin, Total 0.3 mg/dL (0.3-1.2); Calc. Creatinine Clearance 0 mL/min (70-130); Calcium 9.5 mg/dL (7.8-10.44); Carbon Dioxide 20 mmol/L (23-31); Chloride 99 mmol/L (98-107); Globulin 5.5 g/dL (2.4-3.5); Glucose 208 mg/dL (83-110); Potassium 5.1 mmol/L (3.5-5.1); Sodium 133 mmol/L (136-145)
[2024-10-16 23:44] LABS: Bacteria/HPF None Seen HPF (None Seen); CAUTI Indications for Culture Alt mental st,lethar; Glucose, Urine (Dipstick) Greater than 1000 mg/dL (Negative); Leukocyte Negative Leu/uL (Negative); Protein, Urine (Dipstick) 10 mg/dL (Neg-Trace); RBC/HPF 0-3 HPF (0-3); Specific Gravity, Urine 1.016 (1.002-1.036); WBC/HPF 0-3 HPF (0-3)
[2024-10-16 23:48] LABS: Urine Culture Reflex No No
[2024-10-17] MEDS ORDERED: Simethicone Chewable 80 MG TAB PO PRN (04:07)
[2024-10-17] MEDS ORDERED: Glucagon 1 MG/ML KIT IM PRN (04:10)
[2024-10-17] MEDS ORDERED: Dextrose 50% Abboject 50 ML SYRINGE SLOW IVP PRN (04:10)
[2024-10-17 04:13] VITALS: BMI 33.9
[2024-10-17] MEDS: Vancomycin (BATCH) 2.5 GM in Premix 1 BAG IVPB SCH (04:16)
[2024-10-17] MEDS: Acetaminophen 325 MG TAB PO SCH (10:26)
[2024-10-17] MEDS: Furosemide 40 MG TAB PO SCH (10:41)
[2024-10-17] MEDS: Aspirin 81 mg Enteric Coated Tablet PO SCH (10:42)
[2024-10-17] MEDS: Lansoprazole 30 MG/10 ML UDCUP PO SCH (10:45)
[2024-10-17] MEDS: Metoprolol Succinate XL 50 MG ER.TAB PO SCH (10:46)
[2024-10-17] MEDS: Sertraline 100 MG TAB PO SCH (10:46)
[2024-10-17] MEDS: Insulin Glargine 30 UNITS/0.3 ML VIAL SC SCH (12:50)
[2024-10-17 16:04] VITALS: BMI 33.9
[2024-10-17] MEDS: Acetaminophen 325 MG TAB PO PRN (23:13)
[2024-10-17] MEDS: Melatonin 3 MG TAB PO PRN (23:13)
[2024-10-18 04:19] LABS: #Basophils Less than 0.03 10x3/uL (0.0-0.2); #Eosinophils 0.09 10x3/uL (0.0-0.7); #Monocytes 0.66 10x3/uL (0.11-0.59); #Neutrophils 6.05 10x3/uL (1.40-6.50); %Basophils 0.2 % (0.0-1.0); %Eosinophils 1.0 % (0.0-10.0); %Lymphocytes 27.7 % (21.0-51.0); %Monocytes 7.0 % (0.0-10.0); %Neutrophils 63.8 % (42.0-75.0); Hematocrit 33.1 % (42.0-52.0); Hemoglobin 9.8 g/dL (14.0-18.0); Mean Corpuscular Hemoglobin 22.7 pg (27.0-31.0); Mean Corpuscular Volume 76.6 fL (78.0-98.0); Platelet Count 154 10x3/uL (130-400); Red Blood Cell (RBC) Count 4.32 mill/uL (4.70-6.10); White Blood Cell (WBC) Count 9.47 10x3/uL (4.8-10.8)
[2024-10-18 04:51] LABS: Anion Gap 12 mmol/L (10-20); BUN (Urea Nitrogen) 18 mg/dL (8.4-25.7); Calc. Creatinine Clearance 106 mL/min (70-130); Calcium 8.2 mg/dL (7.8-10.44); Carbon Dioxide 18 mmol/L (23-31); Chloride 109 mmol/L (98-107); Glucose 122 mg/dL (83-110); Potassium 3.3 mmol/L (3.5-5.1); Sodium 136 mmol/L (136-145)
[2024-10-18] MEDS ORDERED: VANCOMYCIN IVPB PRN (08:39)
[2024-10-18] MEDS: Enoxaparin 40 MG (0.4 mL) SYRINGE SC SCH (09:46)
[2024-10-18] MEDS: Vancomycin 1 GM in Premix 1 BAG IVPB SCH (09:46)
[2024-10-19 05:16] LABS: Hematocrit 31.9 % (42.0-52.0); Hemoglobin 9.7 g/dL (14.0-18.0); Mean Corpuscular Hemoglobin 22.9 pg (27.0-31.0); Mean Corpuscular Volume 75.4 fL (78.0-98.0); Platelet Count 183 10x3/uL (130-400); Red Blood Cell (RBC) Count 4.23 mill/uL (4.70-6.10); White Blood Cell (WBC) Count 7.23 10x3/uL (4.8-10.8)
[2024-10-19 05:31] LABS: Vancomycin, Random 23.2 ug/mL (See Comment)
[2024-10-19 05:35] LABS: Anion Gap 10 mmol/L (10-20); BUN (Urea Nitrogen) 26 mg/dL (8.4-25.7); Calc. Creatinine Clearance 114 mL/min (70-130); Calcium 8.0 mg/dL (7.8-10.44); Carbon Dioxide 20 mmol/L (23-31); Chloride 112 mmol/L (98-107); Glucose 164 mg/dL (83-110); Potassium 3.3 mmol/L (3.5-5.1); Sodium 139 mmol/L (136-145)
[2024-10-19 08:22] LABS: Magnesium 1.7 mg/dL (1.6-2.6)
[2024-10-19] MEDS: Vancomycin 1 GM in Premix 1 BAG IVPB SCH (08:56)
[2024-10-20] MEDS: VANCOMYCIN 1.75 GM/350 ML Premix BAG IVPB SCH (08:40)
[2024-10-20 09:27] LABS: Anion Gap 14 mmol/L (10-20); BUN (Urea Nitrogen) 30 mg/dL (8.4-25.7); Calc. Creatinine Clearance 128 mL/min (70-130); Calcium 8.7 mg/dL (7.8-10.44); Carbon Dioxide 20 mmol/L (23-31); Chloride 109 mmol/L (98-107); Glucose 129 mg/dL (83-110); Magnesium 1.8 mg/dL (1.6-2.6); Potassium 3.5 mmol/L (3.5-5.1); Sodium 139 mmol/L (136-145)
[2024-10-20] MEDS: HYDROcodone/Acetaminophen 5/325 mg Tablet PO PRN (11:45)
[2024-10-20 12:27] VITALS: BP 115/66; TEMP 98.2
== END 2024-10-20 16:08 | DRG 871 ==
LOC: ERS 20:25 → 2NO 10-17 02:02 → T4-A 10-18 15:06
PROVIDERS: ADMIT Student in an Organized Health Care Education/Training Program; ATTEND Internal Medicine
DX: A41.9 Sepsis, unspecified organism (principal); G93.41 Metabolic encephalopathy; L89.154 Pressure ulcer of sacral region, stage 4; I50.22 Chronic systolic (congestive) heart failure; N17.9 Acute kidney failure, unspecified; I25.2 Old myocardial infarction; E87.6 Hypokalemia; D64.9 Anemia, unspecified; I25.10 Atherosclerotic heart disease of native coronary artery without angina pectoris; E11.9 Type 2 diabetes mellitus without complications; E11.621 Type 2 diabetes mellitus with foot ulcer; I11.0 Hypertensive heart disease with heart failure; E78.5 Hyperlipidemia, unspecified; G89.29 Other chronic pain; Z99.3 Dependence on wheelchair; Z74.01 Bed confinement status; Z79.4 Long term (current) use of insulin
CPT/HCPCS: 36415; 36416; 70450; 71045; 80048; 80053; 80202; 81001; 82805; 83605; 83735; 85025; 85027; 87040; 87077; 87081; 87086; 87149; 93005; 94760; 96365; 96366; 96367; 97139; J0692; J1650; J1815; J2543; J3373; J3375; J7030

== ENCOUNTER 2025-01-01 09:33 | Inpatient (IN) | payer MEDICARE, BC ==
[2025-01-01 10:58] LABS: ALT (SGPT) 9 U/L (Less than 45); AST (SGOT) 15 U/L (11-34); Albumin 2.8 g/dL (3.1-4.5); Alkaline Phosphatase 62 U/L (40-110); Anion Gap 13 mmol/L (10-20); BUN (Urea Nitrogen) 21 mg/dL (8.4-25.7); Bilirubin, Total 0.3 mg/dL (0.3-1.2); Calc. Creatinine Clearance 0 mL/min (70-130); Calcium 9.4 mg/dL (7.8-10.44); Carbon Dioxide 25 mmol/L (23-31); Chloride 102 mmol/L (98-107); Globulin 4.5 g/dL (2.4-3.5); Glucose 140 mg/dL (83-110); Potassium 3.8 mmol/L (3.5-5.1); Sodium 136 mmol/L (136-145)
[2025-01-01 11:05] LABS: #Basophils 0.05 10x3/uL (0.0-0.2); #Eosinophils 0.36 10x3/uL (0.0-0.7); #Monocytes 1.10 10x3/uL (0.11-0.59); #Neutrophils 7.26 10x3/uL (1.40-6.50); %Basophils 0.4 % (0.0-1.0); %Eosinophils 2.7 % (0.0-10.0); %Lymphocytes 34.5 % (21.0-51.0); %Monocytes 8.2 % (0.0-10.0); %Neutrophils 54.0 % (42.0-75.0); Hematocrit 36.3 % (42.0-52.0); Hemoglobin 10.4 g/dL (14.0-18.0); Mean Corpuscular Hemoglobin 21.8 pg (27.0-31.0); Mean Corpuscular Volume 76.3 fL (78.0-98.0); Platelet Count 208 10x3/uL (130-400); Red Blood Cell (RBC) Count 4.76 mill/uL (4.70-6.10); White Blood Cell (WBC) Count 13.43 10x3/uL (4.8-10.8)
[2025-01-01 11:08] LABS: Bacteria/HPF None Seen HPF (None Seen); CAUTI Indications for Culture Alt mental st,lethar; Glucose, Urine (Dipstick) Greater than 1000 mg/dL (Negative); Leukocyte Negative Leu/uL (Negative); Protein, Urine (Dipstick) 10 mg/dL (Neg-Trace); RBC/HPF None Seen HPF (0-3); Specific Gravity, Urine 1.020 (1.002-1.036); WBC/HPF 0-3 HPF (0-3)
[2025-01-01 11:17] LABS: Urine Culture Reflex No No
[2025-01-01 12:04] LABS: Anisocytosis SLIGHT = 6-15 cells HPF (0-5); Microcytosis SLIGHT = 6-15 cells HPF (0-5); Platelet Adequacy Comment Platelets Normal; Polychromasia SLIGHT = 2-3 cells HPF (0-2)
[2025-01-01] MEDS ORDERED: Cefepime 2 GM VIAL ONE (12:22)
[2025-01-01] MEDS ORDERED: Ondansetron PF 4 MG/2 ML Vial IVP PRN (13:26)
[2025-01-01] MEDS ORDERED: Guaifenesin DM 100-10/5 ML UDCUP PO PRN (13:26)
[2025-01-01] MEDS ORDERED: Acetaminophen 325 MG TAB PO PRN (13:26)
[2025-01-01] MEDS ORDERED: Glucagon 1 MG/ML KIT IM PRN (14:43)
[2025-01-01] MEDS ORDERED: Dextrose 50% Abboject 50 ML SYRINGE SLOW IVP PRN (14:43)
[2025-01-01] MEDS ORDERED: Simethicone Chewable 80 MG TAB PO PRN (14:44)
[2025-01-01 16:09] VITALS: BMI 28.6
[2025-01-01] MEDS: VANCOMYCIN 2 GRAM/400 ML Premix BAG IVPB SCH (17:55)
[2025-01-01] MEDS: Ketorolac Tromethamine 30 MG (1 mL) VIAL IVP PRN (20:02)
[2025-01-01] MEDS ORDERED: VANCOMYCIN 1.25 GM/250 ML BAG IVPB SCH (21:00)
[2025-01-01] MEDS: HYDROcodone/Acetaminophen 10/325 mg Tablet PO PRN (23:33)
[2025-01-02] MEDS: Vancomycin 1 GM in Premix 1 BAG IVPB SCH (06:28)
[2025-01-02 06:30] LABS: #Basophils 0.03 10x3/uL (0.0-0.2); #Eosinophils 0.51 10x3/uL (0.0-0.7); #Monocytes 0.63 10x3/uL (0.11-0.59); #Neutrophils 2.96 10x3/uL (1.40-6.50); %Basophils 0.4 % (0.0-1.0); %Eosinophils 7.4 % (0.0-10.0); %Lymphocytes 39.7 % (21.0-51.0); %Monocytes 9.2 % (0.0-10.0); %Neutrophils 43.2 % (42.0-75.0); Hematocrit 32.2 % (42.0-52.0); Hemoglobin 9.7 g/dL (14.0-18.0); Mean Corpuscular Hemoglobin 22.2 pg (27.0-31.0); Mean Corpuscular Volume 73.9 fL (78.0-98.0); Platelet Count 167 10x3/uL (130-400); Red Blood Cell (RBC) Count 4.36 mill/uL (4.70-6.10); White Blood Cell (WBC) Count 6.87 10x3/uL (4.8-10.8)
[2025-01-02 06:42] LABS: Vancomycin, Random 14.4 ug/mL (See Comment)
[2025-01-02 06:45] LABS: ALT (SGPT) 9 U/L (Less than 45); AST (SGOT) 22 U/L (11-34); Albumin 2.4 g/dL (3.1-4.5); Alkaline Phosphatase 55 U/L (40-110); Anion Gap 14 mmol/L (10-20); BUN (Urea Nitrogen) 17 mg/dL (8.4-25.7); Bilirubin, Total 0.1 mg/dL (0.3-1.2); Calc. Creatinine Clearance 107 mL/min (70-130); Calcium 8.6 mg/dL (7.8-10.44); Carbon Dioxide 21 mmol/L (23-31); Chloride 107 mmol/L (98-107); Globulin 4.2 g/dL (2.4-3.5); Glucose 169 mg/dL (83-110); Potassium 3.9 mmol/L (3.5-5.1); Sodium 138 mmol/L (136-145)
[2025-01-02 06:53] LABS: Platelet Adequacy Comment Platelets Normal
[2025-01-02] MEDS: Aspirin 81 mg Enteric Coated Tablet PO SCH (08:47)
[2025-01-02] MEDS: Sertraline 25 MG TAB PO SCH (08:48)
[2025-01-02] MEDS: Enoxaparin 40 MG (0.4 mL) SYRINGE SC SCH (08:48)
[2025-01-02] MEDS: Metoprolol Succinate XL 50 MG ER.TAB PO SCH (08:48)
[2025-01-02] MEDS: Insulin Glargine 30 UNITS/0.3 ML VIAL SC SCH ×2 (08:49→21:48)
[2025-01-02 14:55] VITALS: BMI 28.6
[2025-01-02] MEDS ORDERED: Furosemide 40 MG TAB PO PRN (16:55)
[2025-01-02] MEDS: Ferrous Sulfate 325 MG TAB PO SCH (21:48)
[2025-01-03 06:20] LABS: #Basophils Less than 0.03 10x3/uL (0.0-0.2); #Eosinophils 0.63 10x3/uL (0.0-0.7); #Monocytes 0.67 10x3/uL (0.11-0.59); #Neutrophils 3.18 10x3/uL (1.40-6.50); %Basophils 0.3 % (0.0-1.0); %Eosinophils 8.3 % (0.0-10.0); %Lymphocytes 40.4 % (21.0-51.0); %Monocytes 8.8 % (0.0-10.0); %Neutrophils 41.9 % (42.0-75.0); Hematocrit 32.8 % (42.0-52.0); Hemoglobin 9.7 g/dL (14.0-18.0); Mean Corpuscular Hemoglobin 22.1 pg (27.0-31.0); Mean Corpuscular Volume 74.9 fL (78.0-98.0); Platelet Count 190 10x3/uL (130-400); Red Blood Cell (RBC) Count 4.38 mill/uL (4.70-6.10); White Blood Cell (WBC) Count 7.59 10x3/uL (4.8-10.8)
[2025-01-03 06:32] LABS: Anion Gap 10 mmol/L (10-20); BUN (Urea Nitrogen) 18 mg/dL (8.4-25.7); Calc. Creatinine Clearance 101 mL/min (70-130); Calcium 8.9 mg/dL (7.8-10.44); Carbon Dioxide 24 mmol/L (23-31); Chloride 107 mmol/L (98-107); Glucose 160 mg/dL (83-110); Potassium 3.5 mmol/L (3.5-5.1); Sodium 137 mmol/L (136-145)
[2025-01-03] MEDS: Melatonin 3 MG TAB PO PRN (23:39)
[2025-01-04 06:07] LABS: #Basophils Less than 0.03 10x3/uL (0.0-0.2); #Eosinophils 0.47 10x3/uL (0.0-0.7); #Monocytes 0.52 10x3/uL (0.11-0.59); #Neutrophils 3.30 10x3/uL (1.40-6.50); %Basophils 0.3 % (0.0-1.0); %Eosinophils 6.4 % (0.0-10.0); %Lymphocytes 40.8 % (21.0-51.0); %Monocytes 7.1 % (0.0-10.0); %Neutrophils 45.1 % (42.0-75.0); Hematocrit 32.8 % (42.0-52.0); Hemoglobin 9.8 g/dL (14.0-18.0); Mean Corpuscular Hemoglobin 22.4 pg (27.0-31.0); Mean Corpuscular Volume 75.1 fL (78.0-98.0); Platelet Count 200 10x3/uL (130-400); Red Blood Cell (RBC) Count 4.37 mill/uL (4.70-6.10); White Blood Cell (WBC) Count 7.31 10x3/uL (4.8-10.8)
[2025-01-04 06:55] LABS: Anion Gap 10 mmol/L (10-20); BUN (Urea Nitrogen) 24 mg/dL (8.4-25.7); Calc. Creatinine Clearance 97 mL/min (70-130); Calcium 9.1 mg/dL (7.8-10.44); Carbon Dioxide 25 mmol/L (23-31); Chloride 107 mmol/L (98-107); Glucose 190 mg/dL (83-110); Potassium 3.8 mmol/L (3.5-5.1); Sodium 138 mmol/L (136-145)
[2025-01-04] MEDS: PNEUMOC 20-VAL CONJ-DIP CRM/PF 0.5 ML SYRINGE IM ONE (17:51)
[2025-01-04] MEDS: Senokot S 8.6-50 MG TAB PO PRN (21:14)
[2025-01-05 12:49] LABS: Calc. Creatinine Clearance 106.0 mL/min (70-130); Vancomycin, Random 29.3 ug/mL (See Comment)
[2025-01-05] MEDS: Amoxicillin/Potassium Clav 875 MG TAB PO SCH (21:20)
[2025-01-06 12:20] VITALS: BP 108/70
[2025-01-06 16:00] VITALS: TEMP 98
== END 2025-01-06 15:45 | disposition home health service (06) | DRG 871 ==
LOC: ERS 09:33 → T4-B 13:32
PROVIDERS: ADMIT Hospitalist; ATTEND Hospitalist
DX: A41.9 Sepsis, unspecified organism (principal); L89.153 Pressure ulcer of sacral region, stage 3; L89.154 Pressure ulcer of sacral region, stage 4; R53.2 Functional quadriplegia; I50.22 Chronic systolic (congestive) heart failure; I11.0 Hypertensive heart disease with heart failure; I25.10 Atherosclerotic heart disease of native coronary artery without angina pectoris; E78.5 Hyperlipidemia, unspecified; I25.2 Old myocardial infarction; I48.0 Paroxysmal atrial fibrillation; G47.33 Obstructive sleep apnea (adult) (pediatric); G89.29 Other chronic pain; M54.50 Low back pain, unspecified; Z93.0 Tracheostomy status; Z93.1 Gastrostomy status; Z98.890 Other specified postprocedural states; E11.40 Type 2 diabetes mellitus with diabetic neuropathy, unspecified; E11.65 Type 2 diabetes mellitus with hyperglycemia; Z95.1 Presence of aortocoronary bypass graft; Z93.3 Colostomy status; I27.20 Pulmonary hypertension, unspecified; Z79.4 Long term (current) use of insulin; Z79.899 Other long term (current) drug therapy
CPT/HCPCS: 36415; 36416; 80048; 80053; 80202; 81001; 82010; 82565; 83605; 85025; 87040; 87081; 96361; 96365; 97139; J0692; J1650; J1815; J1885; J3373; J3375; J7030

== ENCOUNTER 2025-02-23 19:40 | Emergency (ER) | payer MEDICARE, BC ==
[~2025-02-23 19:40] MED LIST: Iopamidol-370 76% 500 ML MDV (1 ML CHARGE) ONE
[2025-02-23 20:17] LABS: #Basophils 0.03 10x3/uL (0.0-0.2); #Eosinophils 0.27 10x3/uL (0.0-0.7); #Monocytes 0.65 10x3/uL (0.11-0.59); #Neutrophils 4.02 10x3/uL (1.40-6.50); %Basophils 0.4 % (0.0-1.0); %Eosinophils 3.3 % (0.0-10.0); %Lymphocytes 39.4 % (21.0-51.0); %Monocytes 7.9 % (0.0-10.0); %Neutrophils 48.8 % (42.0-75.0); Hematocrit 34.4 % (42.0-52.0); Hemoglobin 10.5 g/dL (14.0-18.0); Mean Corpuscular Hemoglobin 22.8 pg (27.0-31.0); Mean Corpuscular Volume 74.8 fL (78.0-98.0); Platelet Count 111 10x3/uL (130-400); Red Blood Cell (RBC) Count 4.60 mill/uL (4.70-6.10); White Blood Cell (WBC) Count 8.24 10x3/uL (4.8-10.8)
[2025-02-23 20:27] LABS: ALT (SGPT) 15 U/L (Less than 45); AST (SGOT) 19 U/L (11-34); Albumin 3.1 g/dL (3.1-4.5); Alkaline Phosphatase 58 U/L (40-110); Anion Gap 12 mmol/L (10-20); BUN (Urea Nitrogen) 20 mg/dL (8.4-25.7); Bilirubin, Total 0.2 mg/dL (0.3-1.2); Calc. Creatinine Clearance 0 mL/min (70-130); Calcium 8.9 mg/dL (7.8-10.44); Carbon Dioxide 24 mmol/L (23-31); Chloride 106 mmol/L (98-107); Globulin 4.1 g/dL (2.4-3.5); Glucose 241 mg/dL (83-110); Potassium 4.5 mmol/L (3.5-5.1); Sodium 137 mmol/L (136-145)
[2025-02-23 20:44] LABS: Microcytosis SLIGHT = 6-15 cells HPF (0-5); Ovalocytes SLIGHT = 2-5 cells HPF (0-1); Platelet Adequacy Comment Platelets Decreased
[2025-02-23] MEDS ORDERED: LevoFLOXacin 750 mg/D5W 150 ml Premix Bag ONE (22:56)
== END 2025-02-24 00:45 | disposition home or self-care (01) ==
LOC: ERS 19:40
DX: L89.159 Pressure ulcer of sacral region, unspecified stage (principal); E11.40 Type 2 diabetes mellitus with diabetic neuropathy, unspecified; I50.9 Heart failure, unspecified; I25.2 Old myocardial infarction
CPT/HCPCS: 74177; 80053; 85025; 93005; J1956; 96365; Q9967